=== PATIENT | female | born 1965 | race Caucasian/White ===

== ENCOUNTER 2018-02-11 11:08 | Day surgery (SDC) | payer BC, OTHER ==
[2018-02-11] MEDS ORDERED: LR 1,000 ML IV ONE (11:27)
[2018-02-11] MEDS ORDERED: LIDOCAINE 1% 2 ML INJ ID PRN (11:27)
[2018-02-11] MEDS ORDERED: MIDAZOLAM 2 MG/2 ML VIAL IVP ONE (11:56)
--- NOTE | 2018-02-11 11:57 | PDHPUP ---
History & Physical Update H&P update statement: This history and physical update is based on an assessment of the patient which was completed after admission or registration (within 24 hours), but prior to the surgery/procedure. H&P update: H&P reviewed & patient examined (No changes since her last office visit. ), no change in patient's condition since H&P completed
[2018-02-11] MEDS ORDERED: fentaNYL 100 MCG/2 ML INJ IVP PRN (11:59)
[2018-02-11] MEDS ORDERED: NALOXONE HCL 0.4 MG/ML INJ IVP PRN (11:59)
[2018-02-11] MEDS ORDERED: oxyCODONE IR 5 MG TAB PO PRN (11:59)
[2018-02-11] MEDS ORDERED: ONDANSETRON 4 MG/2 ML VIAL IVP PRN (11:59)
[2018-02-11] MEDS ORDERED: DEXAMETHASONE 4 MG/ML VIAL IVP PRN (11:59)
[2018-02-11] MEDS ORDERED: ACETAMINOPHEN 500 MG TAB PO PRN (11:59)
[2018-02-11] MEDS ORDERED: HYDROCODONE/APAP 5/325 TAB PO PRN (11:59)
[2018-02-11] MEDS ORDERED: LR 500 ML IV PRN (11:59)
[2018-02-11] MEDS ORDERED: PROMETHAZINE HCL 25 MG/ML INJ IVP PRN (11:59)
--- NOTE | 2018-02-11 11:59 | PDANEPAE ---
ANE Past Medical History - Cardiovascular History Hx Hypertension: No Hx Arrhythmias: No Hx Chest Pain: No Hx Coronary Artery / Peripheral Vascular Disease: No Hx CHF / Valvular Disease: No Hx Palpitations: No - Pulmonary History Hx COPD: No Hx Asthma/Reactive Airway Disease: No Hx Recent Upper Respiratory Infection: No Hx Oxygen in Use at Home: No Hx Sleep Apnea: No Sleep Apnea Screening Result - Last Documented: Negative - Neurologic History Hx Cerebrovascular Accident: No Hx Seizures: No Hx Dementia: No - Endocrine History Hx Diabetes: No - Renal History Hx Renal Disorders: No - Liver History Hx Hepatic Disorders: No - Neurological & Psychiatric Hx Hx Neurological and Psychiatric Disorders: No - Cancer History Hx Cancer: No - Congenital Disorder History Hx Congenital Disorders: No - GI History Hx Gastrointestinal Disorders: No - Other Health History Other Health History: WEARS READING GLASSES - Chronic Pain History Chronic Pain: No - Surgical History Prior Surgeries: X3 ANE Review of Systems Review of Systems: - Exercise capacity METS (RN): 6 METS ANE Patient History - Allergies Allergies/Adverse Reactions: No Known Allergies Allergy (Verified 02/10/18 10:33) - Home Medications Home medications: home medication list seen and reviewed Home Medications: Herbals/Supplements -Info Only 02/10/18 [Last Taken 02/06/18] - NPO status NPO Status: no food or drink >8 hours NPO Since - Liquids (Date): 02/11/18 NPO Since - Liquids (Time): 09:00 NPO Since - Solids (Date): 02/10/18 NPO Since - Solids (Time): 17:30 - Anes Hx Anes Hx: no prior problems - Smoking Hx Smoking Status: Never smoked Marijuana use: No - Alcohol Use Alcohol Use: Occasionally - Family Anes Hx Family Hx Anesthesia Complications: NONE ANE Labs/Vital Signs - Vital Signs Blood Pressure: 129/87 Heart Rate: 69 Respiratory Rate: 15 O2 Sat (%): 98 Height: 170.18 cm Weight: 72.575 kg ANE Physical Exam - Airway Neck exam: FROM Mallampati Score: Class 3 Mouth exam: normal dental/mouth exam - Pulmonary Pulmonary: no respiratory distress, no rales or rhonchi, clear to auscultation - Cardiovascular Cardiovascular: regular rate and rhythym, no murmur, rub, or gallop - ASA Status ASA Status: I ANE Anesthesia Plan Anesthesia Plan: MAC
[2018-02-11] MEDS ORDERED: BUPIVACAINE 0.5% 30 ML SDV ONE (12:04)
[2018-02-11] MEDS ORDERED: BACITRACIN 50,000 UNITS/10 ML SYR IRR ONE (12:04)
[2018-02-11] MEDS ORDERED: POLYMYXIN B SULFATE 500,000 UNIT/10 ML SYR IRR ONE (12:04)
[2018-02-11] MEDS ORDERED: ROPIVACAINE HCL 150 MG/30 ML INJ ONE (12:04)
[2018-02-11] MEDS ORDERED: PROPOFOL 200 MG/20 ML VIAL ONE ×2 (12:23)
[2018-02-11] MEDS ORDERED: fentaNYL 100 MCG/2 ML INJ ONE (12:23)
[2018-02-11] MEDS ORDERED: LIDOCAINE 1% 300 MG/30 ML SDV ONE (12:35)
--- NOTE | 2018-02-11 13:23 | POSTOPPROG ---
Post Op Note Date of Operation: 02/11/18 Surgeon: Velma Arauz Candy Dipper: none Anesthesiologist: Dr. Jose Luis Chong Anesthesia: LMA (MAC /light general) Pre-op Diagnosis: soft tissue mass left ankle Post-op Diagnosis: soft tissue mass left ankle Indication: pain Procedure: excision of soft tissue mass Findings: dense soft tissue mass, well defined Inf/Abcess present in the surg proc area at time of surgery?: No Depth: Deep Incisional (Fascial) EBL: Minimal Complications: none Specimen(s): dense soft tissue mass 6 mm in size sent for gross and micro exam. Neurolenoma?
--- NOTE | 2018-02-11 13:30 | POSTANESTH ---
Post Anesthetic Evaluation Cardiovascular Status: Normal, Stable, Similar to Pre-Op Cond Respiratory Status: Normal, Stable, Similar to Pre-op Cond. Level of Consciousness/Mental Status: Can Participate in Eval, Alert and Oriented Pain Control: Adequate, Prn Tx Ordered Nausea/Vomiting Control: Adequate, Prn Tx Ordered Complications Possibly Related to Anesthesia: None Noted
[2018-02-11] MEDS ORDERED: HYDROCODONE/APAP 5/325 TAB ONE (14:51)
[2018-02-11 15:09] VITALS: BP 125/98
--- NOTE | 2018-02-11 15:45 | GOP ---
DATE OF OPERATION: SURGEON: Velma Arauz DPM ANESTHESIA: MAC. ANESTHESIOLOGIST: Jose Luis Shukla MD. PREOPERATIVE DIAGNOSIS: Soft tissue mass, left ankle. POSTOPERATIVE DIAGNOSIS: Soft tissue mass, left ankle. PROCEDURE PERFORMED: Excision of subcutaneous soft tissue mass, left ankle. FINDINGS: Firm, mobile painting/white soft tissue mass/oval shape INDICATIONS: Recalcitrant pain x30 years on and off in the left ankle. Symptoms began after injuring the ankle where she fell into a hole running and had torn ligaments and believes she chipped the bone. Pain can be severe at times with any pressure to it or when wearing ski boots. Physical exam of left lateral ankle revealed an obvious mobile firm subcutaneous soft tissue mass anterolateral to the fibula, very tender with palpation. Patient is guarded. Repeat xrays or studies not necessary. Offered surgical removal of the soft tissue mass. At this time, frustrated with on going pain, patient elects to proceed with surgery involving removal of soft tissue mass. DESCRIPTION OF PROCEDURE: The patient was brought into the operating room and placed on the operating table in a supine position. Intravenous sedation administered by the anesthesiologist. A peripheral nerve block was obtained utilizing a total of 15 cc of a 1:1:1 mix of 0.5% ropivacaine plain, 0.5% bupivacaine plain and 1% lidocaine plain. The lower extremity was prepped and draped in usual sterile manner. After the limb was elevated, it was exsanguinated with an Esmarch bandage, and the high ankle tourniquet was inflated to 220 mmHg and the procedure was begun. Stockinette utilized under the ankle cuff for padding. Attention was directed toward the lateral aspect of the ankle where a linear incision was created along the relaxed skin tension lines. The incision was carefully deepened with care of neurovascular structures and clamp and cauterize bleeders. Immediately below the skin, a firm mobile soft tissue mass identified, very well defined from the surrounding soft tissue structures. Bead like. It was carefully released from surround soft tissue, and in close approximation to a vein. The superficial peronal nerve not identified as it courses 1 cm further medially . Soft tissue mass removed from the wound in toto , was noted to be dense, not fluid filled. Painting/white in coloration. 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 Will be sending to pathology for gross and microscopic examination. Tourniquet was released and a normal hyperemic response was noted to all digits. Note, the soft tissue mass had no deeper extensions. There was some significant bleeding from the vein, which was then cauterized and controlled and then wound closure performed utilizing 4-0 Prolene in a horizontal mattress and simple interrupted suture manner. Dressings included Xeroform, 4x4s, fluffs, Donald reinforced with tape and an Jaswant bandage. The patient tolerated the procedure and anesthesia well, left the operating room with vital signs stable and vascular status intact to all digits. There were no intraoperative complications. In postop recovery, she is doing well in no pain. She was fitted with a cryo cuff. She is allowed to weight bear immediately. She is to follow up in the office in 2 days for wound check. Prognosis good. /[id number]/MODL MTDD
--- NOTE | 2018-02-11 16:05 | GOP ---
report completed MTDD
== END 2018-02-11 15:09 | disposition home or self-care (01) ==
LOC: FSGY 11:08
PROVIDERS: ATTEND Podiatrist
PROC: 0LBP0ZZ Excision of Left Lower Leg Tendon, Open Approach (ICD-10-PCS; principal; 2018-02-11 12:30)
DX: D21.22 Benign neoplasm of connective and other soft tissue of left lower limb, including hip (principal)
CPT/HCPCS: J0690; J2250; J2704; J2795; J3010

== ENCOUNTER → 2018-06-01 | Outpatient (CLI) | payer OTHER | END | disposition home or self-care (01) | LOC: FIMAGING 10:39 | PROVIDERS: ATTEND Family Medicine | DX: N85.8 Other specified noninflammatory disorders of uterus (principal); N88.8 Other specified noninflammatory disorders of cervix uteri; N92.1 Excessive and frequent menstruation with irregular cycle; R32 Unspecified urinary incontinence; R30.0 Dysuria ==

== ENCOUNTER → 2018-07-06 | Outpatient (CLI) | payer OTHER ==
[~2018-07-06] MED LIST: GADOBUTROL 10 ML VIAL IVP ONE
== END ==
LOC: FIMAGING 15:07
PROVIDERS: ATTEND Family Medicine
DX: R32 Unspecified urinary incontinence (principal); R14.0 Abdominal distension (gaseous)
CPT/HCPCS: A9585

== ENCOUNTER → 2018-10-05 | Outpatient (CLI) | payer OTHER | LOC: FIMAGING 13:39 | PROVIDERS: ATTEND Family Medicine | DX: R93.421 Abnormal radiologic findings on diagnostic imaging of right kidney (principal); R30.0 Dysuria; R32 Unspecified urinary incontinence; R14.0 Abdominal distension (gaseous); N92.1 Excessive and frequent menstruation with irregular cycle ==